=== PATIENT | male | born 1965 | race Caucasian/White ===

== ENCOUNTER 2022-10-22 08:47 | Day surgery (SDC) | payer OTHER ==
[~2022-10-22] VITALS: Ht 167.6 cm; Wt 91.6 kg
[2022-10-22] MEDS ORDERED: diphenhydrAMINE 50 MG/ML VIAL ONE (09:30)
[2022-10-22] MEDS ORDERED: fentaNYL citrate 0.05 MG/ML VIAL ONE (09:30)
[2022-10-22] MEDS ORDERED: MIDAZOLAM 5 MG/5 ML VIAL ONE (09:30)
[2022-10-22] MEDS ORDERED: LIDOCAINE 2% 100 MG/5 ML UJET TP ONE (09:30)
[2022-10-22] MEDS ORDERED: MIDAZOLAM 2 MG/2 ML VIAL IVP ONE (13:35)
[2022-10-22] MEDS ORDERED: fentaNYL citrate 0.05 MG/ML VIAL IVP ONE (13:35)
[2022-10-22] MEDS ORDERED: diphenhydrAMINE 50 MG/ML VIAL IVP ONE (13:35)
== END 2022-10-22 10:55 | disposition home or self-care (01) ==
LOC: MMU 08:47 → MDS 08:47
PROVIDERS: ATTEND Internal Medicine Gastroenterology
DX: Z12.11 Encounter for screening for malignant neoplasm of colon (principal); I10 Essential (primary) hypertension; E78.00 Pure hypercholesterolemia, unspecified; F17.210 Nicotine dependence, cigarettes, uncomplicated; Z79.899 Other long term (current) drug therapy
CPT/HCPCS: 45378; J1200; J2250; J3010